=== PATIENT | female | born 1960 | race Caucasian/White ===

== ENCOUNTER → 2017-10-21 | Outpatient (CLI) | payer OTHER ==
[~2017-10-21] MED LIST: CYCL-259 PO; DIAZ5TAB PO; DIAZ5TAB4 PO; NORT25CA PO; ONDA4TAB7 PO; OXYC1TAB9 PO; OXYC5CAP2 PO; RABE20TA18 PO; RABE20TA26 PO; RIVA10TA PO; SUCR1TAB PO
[2017-10-21 12:08] LABS: HEMATOCRIT 41.2 % (34.6-47.8); HEMOGLOBIN 13.9 g/dL (11.7-16.4); WHITE BLOOD COUNT 6.5 x10^3/uL (3.4-10)
[2017-10-21 12:19] LABS: BLOOD UREA NITROGEN 15 mg/dL (7-18)
[2017-10-21 12:25] LABS: PATH.CAST-FLAG NOT PRESENT; SPERM-FLAG NOT PRESENT; SRC-FLAG NOT PRESENT; XTAL-FLAG NOT PRESENT; YLC-FLAG NOT PRESENT
== END | disposition home or self-care (01) ==
LOC: STAR 10:56
PROVIDERS: ATTEND Orthopaedic Surgery Adult Reconstructive Orthopaedic Surgery
DX: Z01.818 Encounter for other preprocedural examination (principal); M25.562 Pain in left knee; R79.1 Abnormal coagulation profile; Z96.652 Presence of left artificial knee joint; Z79.899 Other long term (current) drug therapy
CPT/HCPCS: 36415; 80048; 81001; 85025; 85610; 85730; 87081; 87086; 93005